=== PATIENT | male | born 1995 | race Two or more races ===

== ENCOUNTER 2021-03-18 13:02 | Emergency (ER) | payer MEDICAID ==
[~2021-03-18] VITALS: Ht 193 cm; Wt 78.9 kg
--- NOTE | 2021-03-18 13:11 | NUR ---
The patient is [id number], from home,lac on the right hand to the wrist area from a skillsaw 100mcg fentanyl given on scene by paramedics. The patient rates pain 8/10. Denies numbness/tingling in the fingers. Will continue to monitor the patient.
[2021-03-18] MEDS ORDERED: MORPHINE SULFATE INJ 2 MG/ML DISP.SYRIN ONE (13:20)
[2021-03-18] MEDS ORDERED: LIDOCAINE HCL/PF 1% 30 ML SDV ONE (13:21)
[2021-03-18] MEDS ORDERED: ONDANSETRON HCL/PF 4 MG/2 ML VIAL ONE (13:21)
[2021-03-18] MEDS ORDERED: MORPHINE SULFATE INJ 4 MG/ML DISP.SYRIN ONE ×2 (13:21→15:41)
[2021-03-18] MEDS ORDERED: TDAP [DIPH/PERTUSSIS/TET] 0.5 ML VIAL IM ONE ×2 (13:21→13:30)
[2021-03-18] MEDS ORDERED: LIDOCAINE HCL/PF 1% 30 ML VIAL TP ONE ×2 (13:30→16:30)
[2021-03-18] MEDS ORDERED: MORPHINE SULFATE INJ 2 MG/ML DISP.SYRIN IV ONE ×2 (13:30→16:00)
[2021-03-18] MEDS ORDERED: ONDANSETRON HCL/PF 4 MG/2 ML VIAL IVP ONE (13:30)
[2021-03-18] MEDS ORDERED: CEFAZOLIN 1 GM in IV D5W 50 ML IV ONE (13:30)
--- NOTE | 2021-03-18 14:10 | NUR ---
COVID SWAB DONE AND SENT TO THE LAB
--- NOTE | 2021-03-18 14:42 | NUR ---
[facility]ED [facility] CARE. NO CAPACITY FOR PATIENT.
--- NOTE | 2021-03-18 15:02 | NUR ---
CALLED JUANCHO AT [facility] FOR HIGHER LEVEL OF CARE. WANTS CLINICALS AND FACESHEET FAXED. WILL CALL US BACK.
--- NOTE | 2021-03-18 15:39 | NUR ---
AN ORDER OF MORPHINE 4 MG IV PUSH ONCE RECEIVED FROM DR ROWE. THE ORDER IS READ BACK, VERIFIED. NOTED AND CARRIED OUT.
--- NOTE | 2021-03-18 15:45 | NUR ---
MEDICATED THE PATIENT PER ORDER. WILL CONTINUE TO MONITOR THE PATIENT AND REASSESS PAIN.
--- NOTE | 2021-03-18 16:27 | NUR ---
RECEIVED A CALL BACK FROM [facility]. ORTHO SURGEON DEE SANTIAGO UNABLE TO ACCEPT PATIENT AT [facility] AND DECLINING TRANSFER.
[2021-03-18] MEDS ORDERED: HYDROMORPHONE INJ 2 MG/ML DISP.SYRIN IV ONE (17:00)
[2021-03-18] MEDS ORDERED: KETAMINE HCL (500MG/10ML) 50 MG/ML VIAL ONE (17:27)
[2021-03-18] MEDS ORDERED: HYDROMORPHONE 1 MG/1 ML DISP.SYRIN ONE (17:27)
[2021-03-18] MEDS: KETAMINE HCL(200MG/20ML) 10 MG/ML VIAL IV ONE (17:56)
--- NOTE | 2021-03-18 17:56 | NUR ---
THE PATIENT IS GIVEN ORDERED KETAMIN 60 MG PER ORDER. ER MD ROWE, LUIS ANTONIO LUCIANO, RT, TRISH GATES AT THE BEDSIDE. MONITORING THE PATIENT. Addendum: 03/18/21 at 1824 by LSARGSYAN MONITOR ATTACHED. RESPIRATION REGULAR AND UNLABORED.
--- NOTE | 2021-03-18 18:17 | NUR ---
THE PATIENT IS GIVEN ORDERED KETAMIN 90 MG PER ORDER. THE PATIENT IN STABLE CONDITION. VSS. RESPIRATION REGULAR AND UNLABORED. IN ROOM AIR. MONITOR REMAINS ATTACHED.
[2021-03-18] MEDS ORDERED: CEPH500C2 PO (18:30)
[2021-03-18] MEDS ORDERED: HYDR-4275 PO (18:30)
[2021-03-18] MEDS ORDERED: KETAMINE HCL (500MG/10ML) 50 MG/ML VIAL IV ONE (18:30)
--- NOTE | 2021-03-18 18:43 | NUR ---
THE PATIENT IS ALERT AND ORIENTED X4. RATES RIGHT HAND PAIN 3/10. IN ROOM AIR AND DENIES SOB. RESPIRATION REGULAR AND UNLABORED. WILL CONTINUE TO MONITOR THE PATIENT.
[2021-03-18 19:32] VITALS: BP 139/76
--- NOTE | 2021-03-18 19:32 | NUR ---
IV removed. Catheter intact and site benign. Pressure and 4x4 applied to site. No bleeding noted.Patient discharged to home in stable condition. Written and verbal after care instructions given. Patient verbalizes understanding of instruction.
== END 2021-03-18 19:33 | disposition home or self-care (01) ==
LOC: ER 13:04
DX: S61.411A Laceration without foreign body of right hand, initial encounter (principal); W27.0XXA Contact with workbench tool, initial encounter; Y92.89 Other specified places as the place of occurrence of the external cause; Z20.822 Contact with and (suspected) exposure to COVID-19
CPT/HCPCS: 12004; 73130; 87426; 90471; 90715; 96365; 96375 ×2; 96376; 99152; 99285; A6403; C9803; J0690 ×2; J2270 ×3; J2405; J3490 ×3; J7060 ×2; G0500; J1170